=== PATIENT | female | born 1980 | race Caucasian/White ===

== ENCOUNTER → 2018-05-01 | Outpatient (CLI) | payer BC | LOC: US 10:31 | PROVIDERS: ATTEND Internal Medicine | DX: R00.2 Palpitations (principal) | CPT/HCPCS: 93306 ==

== ENCOUNTER → 2018-05-01 | Outpatient (CLI) | payer BC ==
--- NOTE | 2018-05-03 22:36 | RT HOLTER TEST ---
FACILITY: PATIENT NAME: LAURA YATES : [id number] MR: [id number]: [id number] EXAM DATE: ORDERING PHYSICIAN: TIANA MCGARRY TECHNOLOGIST: ARNALDO Hook-up date: 2018-05-01 11:43:00 Duration: 47:52:00 Test Indications: TACHYCARDIA Medications: VITAMINS [id number] QRS complexes 611 Ventricular ectopics which represent <1 % of total QRS comp. 2 Supraventricular ectopics which represent <1 % of total QRS comp. * Paced QRS complexes which represent % of total QRS comp. VENTRICULAR ECTOPY 611 Isolated 0 Bigeminal Cycles 0 Couplets 0 Runs 0 Beats in Runs * Beats LONGEST at * BPM at :: -- * Beats FASTEST at * BPM at :: -- SUPRAVENTRICULAR ECTOPY 2 Isolated 0 Couplets 0 Runs 0 Beats in Runs * Beats LONGEST at * BPM at :: -- * Beats FASTEST at * BPM at :: -- HEART RATES 55 MIN at 06:33:52 2018-05-02 83 AVG 133 MAX at 22:18:02 2018-05-02 LONGEST RR 1.320 secs at 06:18:10 2018-05-03 S-T LEVELS Channel 1 -12.800 mm MIN at 11:43:00 2018-05-01 -12.800 mm MAX at 11:43:00 2018-05-01 Channel 2 -12.800 mm MIN at 11:43:00 2018-05-01 -12.800 mm MAX at 11:43:00 2018-05-01 Channel 3 -12.800 mm MIN at 11:43:00 2018-05-0112.800 mm MAX at 11:43:00 2018-05-01 Sinus rhythm throughout study. Very infrequent PVC occuring in isolation. Pt reported symptoms do not correlate with halter abnormalities. Negative halter monitor. Confirmed by Robbin Pena ([id number]) on 05/03/2018 10:35:58 PM Referred By: Overread By: Robbin Chappell
== END ==
LOC: RESP 10:24
PROVIDERS: ATTEND Family Medicine
DX: R00.0 Tachycardia, unspecified (principal)
CPT/HCPCS: 93225; 93226